=== PATIENT | male | born 1975 | race Two or more races ===

== ENCOUNTER 2023-07-11 14:39 | Emergency (ER) | payer MEDICAID ==
[~2023-07-11] VITALS: Ht 162.6 cm; Wt 77.3 kg
[2023-07-11] MEDS ORDERED: FURO20 PO (14:46)
[2023-07-11 14:58] VITALS: TEMP 98.3
[2023-07-11] MEDS: KETOROLAC TROMETHAMINE 30 MG/ML VIAL IM ONE (17:26)
[2023-07-11 17:29] VITALS: BP 120/95; PULSE 72; RESP 15
== END 2023-07-11 17:32 | disposition home or self-care (01) ==
LOC: EMS 14:47
DX: M25.531 Pain in right wrist (principal)
CPT/HCPCS: 99284; 73110; 73130; 96372; J1885